=== PATIENT | male | born 1995 | race Two or more races ===

== ENCOUNTER 2018-11-19 20:27 | Emergency (ER) | payer BC, OTHER ==
--- NOTE | 2018-11-19 21:03 | ED ---
Substance Abuse/Use - HPI Summary HPI Summary: Pt is a 23 y/o male brought in by EMS who presents to the ED s/p overdose. As per EMS, he overdosed on heroin and was given 7 mg Narcan. Pt states that hes been using heroin and meth intermittently since he was 18 y/o. He was sober for 6 months and relapsed with IV heroin today. Pt recently moved here from [place] so has been under stress. He denies any other current drug use. He has been to many rehabilitation programs in the past. Pt states that currently he is having hearing difficulties, posterior neck pain, and feels cold, thirsty , and shaky. He denies any SI or HI. He uses alcohol occasionally and is a daily smoker. PMHx ADD and depression. - History Of Current Complaint Chief Complaint: EDOverdose Stated Complaint: OVERDOSE PER EMS Time Seen by Provider: 11/19/18 20:35 Hx Obtained From: Patient, EMS Onset/Duration of Drug/ETOH Abuse: Years - about 5 years Ingestion History: Type/Name Of Drug - heroin Overdose Characteristics: IV Aggravating Factor(s): Recent Stress - move from [place] Alleviating Factor(s): Nothing Associated Signs And Symptoms: Intentional Ingestion - heroin, Other: - hearing difficulties - Allergies/Home Medications Allergies/Adverse Reactions: Allergies Allergy/AdvReac Type Severity Reaction Status Date / Time No Known Allergies Allergy Verified 05/04/13 22:47 PMH/Surg Hx/FS Hx/Imm Hx Respiratory History: Reports: Hx Asthma Psychiatric History: Reports: Hx Attention Deficit Hyperactivity Disorder - ADD , Hx Depression, Hx Substance Abuse - heroin, meth Infectious Disease History: No Infectious Disease History: Denies: Traveled Outside the US in Last 30 Days - Family History Known Family History: Negative: Hypertension - Social History Alcohol Use: Occasionally Hx Substance Use: Yes Substance Use Type: Reports: Heroin, Other - meth Hx Tobacco Use: Yes Smoking Status (MU): Heavy Every Day Tobacco Smoker Review of Systems Positive: Other - feels cold, shaky, thirsty Positive: Other - hearing difficulties Positive: Myalgia - posterior neck Negative: Other - SI/HI All Other Systems Reviewed And Are Negative: Yes Physical Exam - Summary Physical Exam Summary: Appearance: well appearing, no pain distress Skin: warm, dry, reflects adequate perfusion Head/face: normal Eyes: EOMI, MYRNA, pupils small ENT: mucous membranes dry Neck: supple, non-tender Respiratory: CTA, breath sounds present Cardiovascular: tachycardic but regular rhythm, pulses symmetrical Abdomen: non-tender, soft Bowel Sounds: present Musculoskeletal: normal, strength/ROM intact Neuro: sensory motor intact, A&Ox3 but mildly confused, tremulous, hearing diminished Triage Information Reviewed: Yes Vital Signs On Initial Exam: Initial Vitals Temp Pulse Resp BP Pulse Ox 98.9 F 121 20 133/79 96 11/19/18 20:38 11/19/18 20:38 11/19/18 20:38 11/19/18 20:38 11/19/18 20:38 Vital Signs Reviewed: Yes Diagnostics - Vital Signs Vital Signs Temp Pulse Resp BP Pulse Ox 11/19/18 20:38 98.9 F 121 20 133/79 96 - Laboratory Lab Statement: Any lab studies that have been ordered have been reviewed, and results considered in the medical decision making process. Re-Evaluation - Re-Evaluation First Eval Re-Evaluation Time: 21:17 Change: Unchanged Comment: Physical exam. Course/Dx - Course Course Of Treatment: Long-term opiate use or presents with heroin overdose after being revived with Narcan. He states that he had been clean for 6 months and this is the first time he used since moving here from [place]. He was observed here and had no ill effect. He was given nasal Narcan for home use as needed. He was given outpatient referral to the [facility] for therapy of his addiction. - Diagnoses Differential Diagnosis/HQI/PQRI: Positive: Drug Abuse, Metabolic Disorder Provider Diagnoses: Accidental heroin overdose Discharge - Sign-Out/Discharge Documenting (check all that apply): Patient Departure - Discharge Patient Received Moderate/Deep Sedation with Procedure: No - Discharge Plan Condition: Improved Disposition: HOME Patient Education Materials: Opioid Safety (ED) Referrals: Jennifer GARCIA,Kel [Medical Doctor] - [facility],. [Z.BUSINESS, APPLICATION, OTHER] - Additional Instructions: You have been given a handout on the console and also [facility]. Both of these can help you with opiate addiction. Return if worse, new symptoms or other concerns. It may take several days for your hearing to return. Call Saturday morning to schedule appointment or go and walk-in. - Billing Disposition and Condition Condition: IMPROVED Disposition: Home - Attestation Statements Document Initiated by Scribe: Yes Documenting Scribe: Shirley Edmond Provider For Whom Scribe is Documenting (Include Credential): Brandon Edward MD Scribe Attestation: IShirley, scribed for Brandon Edward MD on 11/20/18 at 0636. Scribe Documentation Reviewed: Yes Provider Attestation: The documentation as recorded by the edibeShirley accurately reflects the service I personally performed and the decisions made by me, Brandon Edward MD Status of Scribe Document: Viewed
[2018-11-19] MEDS ORDERED: Naloxone Nasal Spray* 4 MG/0.1 ML NASAL.SPR INTRANASAL ONE (21:26)
[2018-11-19 22:22] VITALS: BP 127/72
== END 2018-11-19 22:22 | disposition home or self-care (01) ==
LOC: ED 20:27
DX: T40.1X1A Poisoning by heroin, accidental (unintentional), initial encounter (principal); Y92.9 Unspecified place or not applicable; F32.9 Major depressive disorder, single episode, unspecified; F17.210 Nicotine dependence, cigarettes, uncomplicated
CPT/HCPCS: 99283; A9270-GY

== ENCOUNTER → 2018-11-20 14:53 | Emergency (ER) | payer BC ==
[~2018-11-20 14:53] MED LIST: Acetaminophen TAB* 325 MG ONE; Acetaminophen TAB* 325 MG PO ONE; NS 0.9% 1000 ML** 1,000 ML IV ONE; NS 0.9% 1000 ML** 2,000 ML IV ONE; Naloxone* 0.4 MG/ML 1 ML VIAL IV ONE; Nicotine GUM* 2 MG PO PRN; Ondansetron INJ* 2 MG/ML VIAL IV ONE
--- NOTE | 2018-11-20 14:58 | ED ---
Substance Abuse/Use - HPI Summary HPI Summary: A 23 y/o M brought in by ambulance presents to ED s/p heroin overdose via arm injection [employer]. He was given Narcan by EMS, which he responded positively too. However, he hit his head upon gaining consciousness and has an occipital hematoma without laceration. Pt was at home, and his little brother called EMS. He was brought into [facility] yesterday for heroin OD and required chest compressions. PMHx: depression. Smoker, vapes. - History Of Current Complaint Stated Complaint: OD PER EMS Time Seen by Provider: 11/20/18 14:55 Hx Obtained From: Patient, EMS Ingestion History: Type/Name Of Drug - heroin Severity Initially: Severe Severity Currently: Mild Associated Signs And Symptoms: Other: - pos: head hematoma without lac - Allergies/Home Medications Allergies/Adverse Reactions: Allergies Allergy/AdvReac Type Severity Reaction Status Date / Time No Known Allergies Allergy Verified 05/04/13 22:47 Home Medications: Home Medications NK [No Home Medications Reported] 11/20/18 [History Confirmed 11/20/18] PMH/Surg Hx/FS Hx/Imm Hx Previously Healthy: No Respiratory History: Reports: Hx Asthma Neurological History: Denies: Hx Dementia Psychiatric History: Reports: Hx Attention Deficit Hyperactivity Disorder - ADD , Hx Depression, Hx Substance Abuse - heroin, meth - Family History Known Family History: Negative: Hypertension - Social History Occupation: Unemployed - OTHER Lives: With Family Alcohol Use: Occasionally Hx Substance Use: Yes Substance Use Type: Reports: Heroin, Other - meth Hx Tobacco Use: Yes Smoking Status (MU): Heavy Every Day Tobacco Smoker Review of Systems Positive: Other - pos: heroin OD Musculoskeletal: Other - pos: head trauma Negative: Other - neg: lac to head All Other Systems Reviewed And Are Negative: Yes Physical Exam - Summary Physical Exam Summary: VITAL SIGNS: Reviewed. GENERAL: Patient is a well-developed and nourished MALE who is lying comfortable in the stretcher. Patient is not in any acute respiratory distress. HEAD AND FACE: Swelling to occipital head. No ecchymosis or skull depressions. No sinus tenderness. EYES: PERRLA, EOMI x 2, No injected conjunctiva, no nystagmus. EARS: Hearing grossly intact. Ear canals and tympanic membranes are within normal limits. MOUTH: Dry oral mucosa. NECK: Supple, trachea is midline, no adenopathy, no JVD, no carotid bruit, no c- spine tenderness, neck with full ROM. CHEST: Symmetric, no tenderness at palpation LUNGS: Clear to auscultation bilaterally. No wheezing or crackles. CVS: Regular rate and rhythm, S1 and S2 present, no murmurs or gallops appreciated. ABDOMEN: Soft, non-tender. No signs of distention. No rebound, no guarding, and no masses palpated. Bowel sounds are normal. EXTREMITIES: FROM in all major joints, no edema, no cyanosis or clubbing. NEURO: Alert and oriented x 3. No acute neurological deficits. Speech is normal and follows commands. SKIN: Dry and warm Triage Information Reviewed: Yes Vital Signs Reviewed: Yes - Aniyah Coma Scale Best Eye Response: 4 - Spontaneous Best Motor Response: 6 - Obeys Commands Best Verbal Response: 5 - Oriented Coma Scale Total: 15 Diagnostics - Laboratory Result Diagrams: 11/20/18 15:12 11/20/18 15:12 Lab Statement: Any lab studies that have been ordered have been reviewed, and results considered in the medical decision making process. - CT BRAIN CT CT Interpretation Completed By: Radiologist Summary of CT Findings: IMPRESSION: #. No evidence for traumatic brain injury or other acute intracranial process. Negative exam. ED provider has reviewed this report. MAXILLOFACIAL CT CT Interpretation Completed By: Radiologist Summary of CT Findings: IMPRESSION: No facial fracture. ED provider has reviewed this report. Re-Evaluation - Re-Evaluation 1 Re-Evaluation Time: 18:02 Change: Improved Comment: Pt is A&Ox3. Course/Dx - Course Assessment/Plan: This patient is a 23-year-old male who presents to the emergency department with chief complaint of heroin overdose. The patient has been taking heroin for the last 3 days. It is reported that the patient was here in the emergency department last night with an overdose of heroin. Today he was found by his brother on the floor very lethargic. EMS gave the patient Narcan and symptoms improved. In the ED course, the patient is dehydrated, lethargic. Therefore we gave him a dose of Narcan. Patient has some facial contusions and also reports having a headache after he hit the floor. Blood test results shows at the bases of 13.5, hemoglobin 11.9, hematocrit 36, platelets 196. CMP is without any significant abnormality except for AST of 62 and CPK 1952. Urinalysis is negative for UTI and urine toxicology positive for opiates. In the ED course the patient was given IV fluids, Narcan and he is hemodynamically stable. Head CT IMPRESSION: #. No evidence for traumatic brain injury or other acute intracranial process. Negative exam. Maxillofacial CT impression: NO FACIAL FRACTURE. In the ED course, the patient was given approximately 2 L of IV fluids and the patient right now is alert and oriented 3. Patient's CPK has decreased to 1605. Patient requested to be discharged home and follow up with his primary care physician. He will try to find help for detox as an outpatient. Patient will be discharged home with his brother. Addendum: Before the patient was discharged he develop fever. Patient was given Tylenol. I reviewed the blood work again and the patient has slight increase in WBCs but the lactic acid is only 1.1. Patient has a runny nose and he may be developing an upper respiratory tract infection. I offer him 2 throat. Chest x-ray however the patient reports that he is not coughing therefore he doesnt want. The patient was to be discharged home with his family. He was recommended to take ibuprofen of Tylenol for fevers however he if the fevers continue she develop any other symptoms to immediately return to the emergency department for further workup and management. The patient understands and agrees. - Diagnoses Provider Diagnoses: Opiate overdose, Rhabdomyolysis Discharge - Sign-Out/Discharge Documenting (check all that apply): Patient Departure - D/C Patient Received Moderate/Deep Sedation with Procedure: No - Discharge Plan Condition: Stable Disposition: HOME Patient Education Materials: Rhabdomyolysis (ED), Adult Overdose (ED) Referrals: [facility] [Outside] [facility] [Outside] - 3 Days Additional Instructions: Please continue to increase your oral intake. FOLLOW UP WITH YOUR PRIMARY CARE PROVIDER WITHIN 3 DAYS. RETURN TO THE ED FOR ANY WORSENING OR NEW SYMPTOMS. - Billing Disposition and Condition Condition: STABLE Disposition: Home - Attestation Statements Document Initiated by Scribe: Yes Documenting Scribe: Shauna Duckworth Provider For Whom Scribe is Documenting (Include Credential): Dr. Jerry Flores MD Scribe Attestation: Shauna Sheets scribed for Dr. Jerry Flores MD on 11/21/18 at 0711. Scribe Documentation Reviewed: Yes Provider Attestation: The documentation as recorded by the scribe, Shauna Duckworth accurately reflects the service I personally performed and the decisions made by me, Dr. Jerry Flores MD Status of Scribe Document: Viewed
[2018-11-20 15:17] LABS: ABS Eosinophils 0.1 10^3/ul (0-0.6); ABS Lymphocytes 2.5 10^3/ul (1.0-4.8); ABS Neutrophils 9.9 10^3/ul (1.5-7.7); Eosinophil % 0.6 %; Hematocrit 36 % (42-52); Hemoglobin 11.9 g/dL (14.0-18.0); Lymphocyte % 18.6 %; Mean Corpuscular HGB Conc 33 g/dL (31-36); Mean Corpuscular Hemoglobin 26 pg (27-31); Mean Corpuscular Volume 79 fL (80-94); Mean Platelet Volume 7.7 fL (7.4-10.4); Platelet Count 196 10^3/uL (150-450); Red Blood Count 4.57 10^6 /uL (4.18-5.48); Red Cell Distribution Width 14 % (10.5-15); White Blood Count 13.5 10^3/uL (3.5-10.8)
[2018-11-20 15:34] LABS: ALT 33 U/L (7-52); AST 62 U/L (13-39); Albumin 4.3 g/dL (3.2-5.2); Alkaline Phosphatase 49 U/L (34-104); Anion Gap 6 mmol/L (2-11); BUN/Creatinine Ratio 11.1 (8-20); Blood Urea Nitrogen 13 mg/dL (6-24); CO2 Carbon Dioxide 30 mmol/L (22-32); Calcium 8.8 mg/dL (8.6-10.3); Chloride 103 mmol/L (101-111); Creatine Kinase 1952 U/L (10-223); EGFR African American 93.5 (>60); EGFR Non-African American 77.3 (>60); Globulin 2.1 g/dL (2-4); Glucose 90 mg/dL (70-100); Potassium 3.9 mmol/L (3.5-5.0); Sodium 139 mmol/L (135-145); Total Protein 6.4 g/dL (6.4-8.9)
[2018-11-20 15:59] LABS: Acetaminophen < 15 mcg/mL; Alcohol < 10 mg/dL (<10); Salicylate < 2.50 mg/dL (<30)
[2018-11-20 16:13] LABS: TSH (Thyroid Stimulating Horm) 2.11 mcIU/mL (0.34-5.60)
[2018-11-20 17:07] LABS: Urine Appearance Cloudy; Urine Bilirubin Negative (Negative); Urine Blood Negative (Negative); Urine Color Yellow; Urine Glucose Negative (Negative); Urine Ketones Negative (Negative); Urine Nitrite Negative (Negative); Urine Protein Negative (Negative); Urine Specific Gravity 1.015 (1.010-1.030); Urine Urobilinogen Negative (Negative)
[2018-11-20 17:22] LABS: Urine Benzodiazepine Screen None Detected (None Detect); Urine Opiates Screen Presumptive Positive (None Detect)
[2018-11-20 18:04] VITALS: BP 118/53
== END | disposition home or self-care (01) ==
LOC: ED 14:53
DX: T40.1X4A Poisoning by heroin, undetermined, initial encounter (principal); M62.82 Rhabdomyolysis; J45.909 Unspecified asthma, uncomplicated; F17.210 Nicotine dependence, cigarettes, uncomplicated; F98.8 Other specified behavioral and emotional disorders with onset usually occurring in childhood and adolescence; F32.9 Major depressive disorder, single episode, unspecified
CPT/HCPCS: 36415; 70450; 70486; 80053; 80307; 80320; 80329; 81003; 82550; 83605; 84443; 85025; 96361; 96374; 96375; 99284; A9270-GY; G0480; J2405

== ENCOUNTER 2018-11-21 22:12 | Emergency (ER) | payer BC ==
[2018-11-21 23:53] LABS: ABS Lymphocytes 0.6 10^3/ul (1.0-4.8); ABS Neutrophils 17.6 10^3/ul (1.5-7.7); Eosinophil % 0.1 %; Hematocrit 35 % (42-52); Hemoglobin 11.5 g/dL (14.0-18.0); Lymphocyte % 3.4 %; Mean Corpuscular HGB Conc 33 g/dL (31-36); Mean Corpuscular Hemoglobin 26 pg (27-31); Mean Corpuscular Volume 80 fL (80-94); Mean Platelet Volume 7.9 fL (7.4-10.4); Platelet Count 171 10^3/uL (150-450); Red Blood Count 4.39 10^6 /uL (4.18-5.48); Red Cell Distribution Width 13 % (10.5-15); White Blood Count 19.3 10^3/uL (3.5-10.8)
[2018-11-22 00:02] LABS: ALT 61 U/L (7-52); AST 88 U/L (13-39); Albumin/Globulin Ratio 1.8 (1-3); Alkaline Phosphatase 59 U/L (34-104); Anion Gap 8 mmol/L (2-11); BUN/Creatinine Ratio 8.3 (8-20); Blood Urea Nitrogen 11 mg/dL (6-24); CO2 Carbon Dioxide 29 mmol/L (22-32); Calcium 8.5 mg/dL (8.6-10.3); Chloride 95 mmol/L (101-111); EGFR African American 80.6 (>60); EGFR Non-African American 66.6 (>60); Globulin 2.2 g/dL (2-4); Glucose 141 mg/dL (70-100); Potassium 4.4 mmol/L (3.5-5.0); Sodium 132 mmol/L (135-145); Total Protein 6.2 g/dL (6.4-8.9)
--- NOTE | 2018-11-22 00:16 | ED ---
Substance Abuse/Use - HPI Summary HPI Summary: This patient is a 23 year old male brought in by ambulance to [facility] with a chief complaint of overdose. Patient is drowsy, but arousable to voice. Patient is unable to give details of what happened to him, but admits to heroin and EtOH usage. Per EMS, patient has been in the ED for an overdose multiple times over the past few days. HPI Limited due to Level 5 Caveat: AMS - History Of Current Complaint Chief Complaint: EDOverdose Stated Complaint: OVERDOSE PER EMS Time Seen by Provider: 11/21/18 22:20 Hx Obtained From: Patient Ingestion History: Type/Name Of Drug - heroin, EtOH Overdose Characteristics: Oral Severity Currently: Moderate Character: Stuporous Aggravating Factor(s): Nothing Alleviating Factor(s): Nothing - Allergies/Home Medications Allergies/Adverse Reactions: Allergies Allergy/AdvReac Type Severity Reaction Status Date / Time No Known Allergies Allergy Verified 05/04/13 22:47 PMH/Surg Hx/FS Hx/Imm Hx Previously Healthy: No - PMHx Limited due to Level 5 Caveat: AMS Respiratory History: Reports: Hx Asthma EENT History: Denies: Hx Deafness Neurological History: Denies: Hx Dementia Psychiatric History: Reports: Hx Attention Deficit Hyperactivity Disorder - ADD , Hx Depression, Hx Substance Abuse - heroin, meth Infectious Disease History: Unable to Obtain/Confirm Infectious Disease History: Denies: Traveled Outside the US in Last 30 Days - Family History Known Family History: Negative: Hypertension - Social History Alcohol Use: Occasionally Hx Substance Use: Yes Substance Use Type: Reports: Heroin Hx Tobacco Use: Yes Smoking Status (MU): Heavy Every Day Tobacco Smoker Review of Systems Negative: Fever Neurological: Other - stuporous due to overdose All Other Systems Reviewed And Are Negative: Yes - Comments Additional Review of Systems Comments: ROS Limited due to Level 5 Caveat: AMS Physical Exam - Summary Physical Exam Summary: Appearance: Appears intoxicated Skin: Warm, dry, no obvious rash Eyes: sclera anicteric, no conjunctival pallor ENT: mucous membranes moist Neck: deferred Respiratory: No signs of respiratory distress Cardiovascular: Appears well perfused, pulses are nml Abdomen: deferred Musculoskeletal: Moving all 4 extremities without obvious discomfort Triage Information Reviewed: Yes Vital Signs On Initial Exam: Initial Vitals Temp Pulse Resp BP Pulse Ox 98.7 F 106 28 124/72 88 11/21/18 22:20 11/21/18 22:20 11/21/18 22:20 11/21/18 22:20 11/21/18 22:20 Vital Signs Reviewed: Yes Diagnostics - Vital Signs Vital Signs Temp Pulse Resp BP Pulse Ox 11/21/18 22:41 98 11/21/18 22:30 172 20 124/72 88 11/21/18 22:28 20 11/21/18 22:20 98.7 F 106 28 124/72 88 - Laboratory Lab Results: Lab Results 11/21/18 11/21/18 Range/Units 23:39 23:39 WBC 19.3 H (3.5-10.8) 10^3/uL RBC 4.39 (4.18-5.48) 10^6 /uL Hgb 11.5 L (14.0-18.0) g/dL Hct 35 L (42-52) % MCV 80 (80-94) fL MCH 26 L (27-31) pg MCHC 33 (31-36) g/dL RDW 13 (10.5-15) % Plt Count 171 (150-450) 10^3/uL MPV 7.9 (7.4-10.4) fL Neut % (Auto) 91.2 % Lymph % (Auto) 3.4 % Barbour % (Auto) 5.2 % Eos % (Auto) 0.1 % Baso % (Auto) 0.1 % Absolute Neuts (auto) 17.6 H (1.5-7.7) 10^3/ul Absolute Lymphs (auto) 0.6 L (1.0-4.8) 10^3/ul Absolute Monos (auto) 1.0 H (0-0.8) 10^3/ul Absolute Eos (auto) 0.0 (0-0.6) 10^3/ul Absolute Basos (auto) 0.0 (0-0.2) 10^3/ul Absolute Nucleated RBC 0.0 10^3/ul Nucleated RBC % 0.0 Sodium 132 L (135-145) mmol/L Potassium 4.4 (3.5-5.0) mmol/L Chloride 95 L (101-111) mmol/L Carbon Dioxide 29 (22-32) mmol/L Anion Gap 8 (2-11) mmol/L BUN 11 (6-24) mg/dL Creatinine 1.33 H (0.67-1.17) mg/dL Est GFR ( Amer) 80.6 (>60) Est GFR (Non-Af Amer) 66.6 (>60) BUN/Creatinine Ratio 8.3 (8-20) Glucose 141 H (70-100) mg/dL Calcium 8.5 L (8.6-10.3) mg/dL Total Bilirubin 0.40 (0.2-1.0) mg/dL AST 88 H (13-39) U/L ALT 61 H (7-52) U/L Alkaline Phosphatase 59 (34-104) U/L Total Protein 6.2 L (6.4-8.9) g/dL Albumin 4.0 (3.2-5.2) g/dL Globulin 2.2 (2-4) g/dL Albumin/Globulin Ratio 1.8 (1-3) TSH Pending Acetaminophen Pending Serum Alcohol Pending Result Diagrams: 11/21/18 23:39 11/21/18 23:39 Lab Statement: Any lab studies that have been ordered have been reviewed, and results considered in the medical decision making process. Course/Dx - Course Course Of Treatment: This patient is a 23 year old male brought in by ambulance to [facility] with a chief complaint of overdose. Patient is drowsy, but arousable to voice. Patient is unable to give details of what happened to him, but admits to heroin and EtOH usage. Per EMS, patient has been in the ED for an overdose multiple times over the past few days. Per Dr. Wheatley (Psychiatrist), Patient will be discharged with a dx of heroin overdose, substance abuse Patient is advised to follow up with PCP in 3 days. The patient is agreeable with this plan. - Diagnoses Provider Diagnoses: Heroin overdose, Substance abuse Discharge - Sign-Out/Discharge Documenting (check all that apply): Patient Departure Patient Received Moderate/Deep Sedation with Procedure: No - Discharge Plan Condition: Stable Disposition: HOME Patient Education Materials: Polysubstance Abuse (ED) Referrals: No Primary Care Phys,NOPCP [Primary Care Provider] - Additional Instructions: Per completion of a mental health evaluation, you are cleared for release and do not require inpatient psychiatric hospitalization at this time. Please go to nearest emergency room or call 911 if safety concerns arise or condition worsens. Important Phone Numbers: [facility] [phone] Suicide Prevention and Crisis Services........................ [phone] National Suicide Prevention Lifeline............................ 272-851-VSVO (8305) [facility]....................... [phone] Alcoholics Anonymous............................................... [facility].............. [phone] [facility] Police.............................................. Substance Abuse Treatment Programs [facility] [place] [facility] - Billing Disposition and Condition Condition: STABLE Disposition: Home - Attestation Statements Document Initiated by Travis: Yes Documenting Scribe: Gregory Kennedy Provider For Whom Travis is Documenting (Include Credential): Adrián Spangler MD Scribe Attestation: Gregory Sheets scribed for Adrián Spangler MD on 11/22/18 at 0633. Scribe Documentation Reviewed: Yes Provider Attestation: The documentation as recorded by the Gregory flannery accurately reflects the service I personally performed and the decisions made by meAdrián MD Status of Scribe Document: Viewed
[2018-11-22 00:36] LABS: Acetaminophen < 15 mcg/mL; Alcohol < 10 mg/dL (<10)
[2018-11-22 00:51] LABS: TSH (Thyroid Stimulating Horm) 0.89 mcIU/mL (0.34-5.60)
[2018-11-22 01:12] LABS: Urine Appearance Clear; Urine Bacteria Absent (Absent); Urine Bilirubin Negative (Negative); Urine Blood 1+ (Negative); Urine Color Straw; Urine Glucose Negative (Negative); Urine Ketones 1+ (Negative); Urine Nitrite Negative (Negative); Urine Protein Negative (Negative); Urine Red Blood Cell Trace(0-2/hpf) (Absent); Urine Specific Gravity 1.003 (1.010-1.030); Urine Urobilinogen Negative (Negative); Urine White Blood Cell Absent (Absent)
[2018-11-22 01:16] LABS: Urine Benzodiazepine Screen None Detected (None Detect); Urine Opiates Screen Presumptive Positive (None Detect)
[2018-11-22 06:33] VITALS: BP 123/74
== END 2018-11-22 06:32 | disposition home or self-care (01) ==
LOC: ED 22:12
DX: T40.1X1A Poisoning by heroin, accidental (unintentional), initial encounter (principal); R40.0 Somnolence; Y92.9 Unspecified place or not applicable; F10.10 Alcohol abuse, uncomplicated; J45.909 Unspecified asthma, uncomplicated; F90.9 Attention-deficit hyperactivity disorder, unspecified type; F32.9 Major depressive disorder, single episode, unspecified; F17.200 Nicotine dependence, unspecified, uncomplicated
CPT/HCPCS: 36415; 80053; 80307; 80320; 80329; 81003; 81015; 84443; 85025; 99285; G0480